=== PATIENT | male | born 1980 | race Caucasian/White ===

== ENCOUNTER 2022-06-10 00:25 | Emergency (ER) | payer OTHER ==
[2022-06-10 02:19] LABS: ACETAMINOPHEN <2.0 ug/mL; BLOOD UREA NITROGEN,BUN 16 mg/dL (7.0-18.0); CARBON DIOXIDE,CO2 22.3 mmol/L (21.0-32.0); CHLORIDE,CL 101 mmol/L (98-107); GLUCOSE RANDOM 105 mg/dL (74-106); SODIUM,NA 135 mmol/L (136-148)
[2022-06-10 02:20] LABS: ESTIMATED GFR 65 mL/min (>60)
== END 2022-06-10 03:16 ==
LOC: MW.ED 00:25
DX: R45.851 Suicidal ideations (principal); Z88.1 Allergy status to other antibiotic agents
CPT/HCPCS: 36415; 80053; 80143; 80179; 80305-QW; 80307; 82375; 85025; 99285